=== PATIENT | female | born 1965 | race Caucasian/White ===

== ENCOUNTER 2017-09-29 21:56 | Emergency (ER) | payer OTHER, MEDICAID ==
[~2017-09-29] VITALS: Ht 167.6 cm; Wt 124.7 kg
[~2017-09-29 21:56] MED LIST: GABA600T2 PO; GLYB5TAB3 PO; HYDR-3237 PO; INSU100V8 SQ; LISI-170 PO; METF10002 PO; NIAC500T9 PO; SULF1TAB23 PO
[2017-09-29] MEDS ORDERED: METOCLOPRAMIDE 5 MG/ML, 2ML IVPush ONE (23:00)
[2017-09-29] MEDS ORDERED: MORPHINE SULFATE 4 MG/ML, 1ML IVPush PRN (23:00)
[2017-09-29] MEDS ORDERED: GABA800T2 PO (23:09)
[2017-09-29] MEDS ORDERED: SITA50TA PO (23:09)
[2017-09-29] MEDS ORDERED: ATOR10TA9 PO (23:12)
[2017-09-29] MEDS ORDERED: INSU100I32 SC (23:12)
[2017-09-29] MEDS ORDERED: CHOL500045 PO (23:14)
[2017-09-29] MEDS ORDERED: METOCLOPRAMIDE 5 MG/ML, 2ML ONE (23:28)
[2017-09-29 23:29] LABS: BASOPHILS % (AUTO) 1 % (0-1); EOSINOPHILS # (AUTO) 0.26 x10^3/uL (0-0.4); EOSINOPHILS % (AUTO) 2 % (1-7); LYMPHOCYTES # (AUTO) 3.61 x10^3/uL (1-3.4); LYMPHOCYTES % (AUTO) 29 % (22-44); MD NO; MEAN CORPUSCULAR HGB CONC 32.8 g/dL (32.4-35.8); MEAN CORPUSCULAR VOLUME 88.4 fL (80-100); MONOCYTES % (AUTO) 4 % (2-9); NEUTROPHILS # (AUTO) 8.16 x10^3/uL (1.8-6.8); NEUTROPHILS % (AUTO) 65 % (42-75); PLATELET COUNT 379 x10^3/uL (130-400); RED BLOOD COUNT 4.27 x10^6/uL (3.82-5.3); RED CELL DISTRIBUTION WIDTH 14.2 % (9.6-15.2)
[2017-09-29 23:35] LABS: ALBUMIN 2.9 g/dL (3.4-5.0); ANION GAP 7 mmol/L (5-15); CALCIUM 8.6 mg/dL (8.5-10.1); CHLORIDE 106 mmol/L (98-107)
[2017-09-29 23:36] LABS: HCG UR SG 1.026 (1.003-1.030)
[2017-09-29 23:39] LABS: ALANINE AMINOTRANSFERASE 22 U/L (12-78); ALKALINE PHOSPHATASE 101 U/L (45-117); BILIRUBIN,TOTAL 0.3 mg/dL (0.2-1.0); CREATININE 1.35 mg/dL (0.55-1.02); TOTAL PROTEIN 7.8 g/dL (6.4-8.2)
[2017-09-29 23:43] LABS: CULTURE INDICATED? YES; MICROSCOPIC INDICATED
[2017-09-30] MEDS ORDERED: OMNIPAQUE 350 MG/ML, 100ML BOTTLE ONE (00:05)
[2017-09-30] MEDS ORDERED: CEFTRIAXONE 1,000 MG in SODIUM CHLORIDE 0.9% 50 ML IV ONE (01:02)
[2017-09-30] MEDS ORDERED: CEFTRIAXONE PMX 1GM/50ML 50 ML ONE (01:07)
[2017-09-30 01:30] VITALS: BP 115/77
[2017-09-30] MEDS ORDERED: CEFTRIAXONE PMX 1GM/50ML 50 ML IV ONE (01:30)
== END 2017-09-30 02:19 | disposition home or self-care (01) ==
LOC: ED 23:24
DX: K85.90 Acute pancreatitis without necrosis or infection, unspecified (principal); N30.91 Cystitis, unspecified with hematuria; F17.200 Nicotine dependence, unspecified, uncomplicated; J44.9 Chronic obstructive pulmonary disease, unspecified
CPT/HCPCS: 36415; 74177; 80053; 81001; 81025; 83690; 85025; 87077; 87086; 96365; 96375; 99285; J0696; J2765; Q9967; 87186

== ENCOUNTER → 2018-06-25 | Outpatient (CLI) | payer OTHER, MEDICAID ==
[~2018-06-25] MED LIST changes: +ATOR10TA9 PO; +CHOL500045 PO; +DEXL60CA2 PO; +GABA800T2 PO; +INSU100I32 SC; +SITA50TA PO
[2018-06-25 15:11] LABS: ALANINE AMINOTRANSFERASE 15 U/L (12-78); ALBUMIN 2.9 g/dL (3.4-5.0); ANION GAP 4 mmol/L (5-15); CALCIUM 9.2 mg/dL (8.5-10.1); CHLORIDE 100 mmol/L (98-107); CREATININE 1.35 mg/dL (0.55-1.02)
[2018-06-25 15:13] LABS: ALKALINE PHOSPHATASE 116 U/L (45-117); BILIRUBIN,TOTAL 0.3 mg/dL (0.2-1.0)
== END | disposition home or self-care (01) ==
LOC: STAR 14:07
PROVIDERS: ATTEND Internal Medicine Gastroenterology
DX: Z01.818 Encounter for other preprocedural examination (principal); R19.7 Diarrhea, unspecified
CPT/HCPCS: 36415; 80053; 93005

== ENCOUNTER 2018-07-04 05:36 | Day surgery (SDC) | payer OTHER, MEDICAID ==
[~2018-07-04] VITALS: Ht 166.4 cm; Wt 120.4 kg
[~2018-07-04 05:36] MED LIST changes: -GABA600T2 PO; +GABA600T7 PO; -GABA800T2 PO; +GABA800T5 PO
[2018-07-04] MEDS ORDERED: LACTATED RINGERS 1,000 ML IV SCH (06:10)
[2018-07-04 06:40] VITALS: BP 123/85
[2018-07-04] MEDS ORDERED: PROPOFOL 10 MG/ML, 20ML ONE (07:27)
[2018-07-04] MEDS ORDERED: ALBUTEROL SULFATE 2.5 MG/3 ML NPPB PRN (07:30)
[2018-07-04] MEDS ORDERED: ONDANSETRON 2MG/ML, 2ML IV PRN (07:30)
[2018-07-04] MEDS ORDERED: ACETAMINOPHEN 325 MG TABLET PO PRN (07:30)
[2018-07-04] MEDS ORDERED: LORazepam 2 MG/ML, 1ML IVPush PRN (07:30)
[2018-07-04] MEDS ORDERED: OXYcodone 5 MG/5 ML ORAL.SOL UDC PO PRN (07:30)
[2018-07-04] MEDS ORDERED: FENTANYL PF 100 MCG/2ML IV PRN (07:30)
== END 2018-07-04 09:25 | disposition home or self-care (01) ==
LOC: OUT 05:36
PROVIDERS: ATTEND Internal Medicine Gastroenterology
DX: K63.5 Polyp of colon (principal); K29.60 Other gastritis without bleeding; K44.9 Diaphragmatic hernia without obstruction or gangrene; K63.89 Other specified diseases of intestine; E11.9 Type 2 diabetes mellitus without complications; F17.210 Nicotine dependence, cigarettes, uncomplicated; I10 Essential (primary) hypertension; J44.9 Chronic obstructive pulmonary disease, unspecified; E78.5 Hyperlipidemia, unspecified; G47.33 Obstructive sleep apnea (adult) (pediatric); Z98.890 Other specified postprocedural states
CPT/HCPCS: 43239; 45380; 82962; 88305; J2704; J7120